=== PATIENT | female | born 1995 | race African-American/Black ===

== ENCOUNTER 2024-10-22 14:49 | Emergency (ER) | payer BC, MEDICAID ==
[~2024-10-22] VITALS: Ht 165.1 cm; Wt 60.0 kg
[2024-10-22 14:52] VITALS: BP 136/94; PULSE 88; RESP 16; TEMP 36.9; O2SAT 99
== END 2024-10-22 16:22 | disposition left against medical advice (07) ==
LOC: ER 15:05
DX: S09.90XA Unspecified injury of head, initial encounter (principal); Z53.21 Procedure and treatment not carried out due to patient leaving prior to being seen by health care provider; W19.XXXA Unspecified fall, initial encounter; Y93.89 Activity, other specified; Y92.89 Other specified places as the place of occurrence of the external cause; Y99.8 Other external cause status